=== PATIENT | female | born 2000 | race Caucasian/White ===

== ENCOUNTER 2019-01-17 22:16 | Emergency (ER) | payer SELFPAY ==
[~2019-01-17] VITALS: Ht 162.6 cm; Wt 56.7 kg
[2019-01-17] MEDS ORDERED: SPRINTEC1 EACH PO (22:41)
[2019-01-17 22:46] VITALS: BP 131/82
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
[2019-01-17] MEDS ORDERED: Methocarbamol 750mg tab ORAL ONE (23:00)
[2019-01-17] MEDS ORDERED: TYLENOL EXTRA500 MG ORAL (23:18)
[2019-01-17] MEDS ORDERED: ROBAXIN-750750 MG PO (23:18)
[2019-01-17] MEDS ORDERED: LIDODERM700 M1 TOPIC (23:18)
[2019-01-17 23:23] VITALS: BP 128/76
--- NOTE | 2019-01-17 23:33 | NUR ---
ER DISCHARGE NOTE: Patient is cleared to be discharged per Dr. Farmer. Meds given as ordered. Pt is A/Ox4 on room air with stable vital signs, pt was given dc and prescription instructions, pt was able to verbalize understanding, pt id band removed. pt is able to ambulate with steady gait and pt took all belongings. Accompanied by her family.
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
== END 2019-01-17 23:33 | disposition home or self-care (01) ==
LOC: EMR 23:00
DX: S16.1XXA Strain of muscle, fascia and tendon at neck level, initial encounter (principal); V43.62XA Car passenger injured in collision with other type car in traffic accident, initial encounter; Y92.410 Unspecified street and highway as the place of occurrence of the external cause; J45.909 Unspecified asthma, uncomplicated
CPT/HCPCS: 99283